=== PATIENT | male | born 1995 | race Caucasian/White ===

== ENCOUNTER → 2017-03-16 | Outpatient (REF) ==
[~2017-03-16] MED LIST: FLEXERIL 1010 MG/TAB PO; NORCO 325 MG-51 TAB PO
== END ==
LOC: WSOH 11:05
DX: Z02.1 Encounter for pre-employment examination (principal)

== ENCOUNTER 2017-05-14 20:28 | Emergency (ER) | payer SELFPAY ==
[~2017-05-14] VITALS: Ht 177.8 cm; Wt 70.5 kg
[~2017-05-14 20:28] MED LIST changes: -NORCO 325 MG-51 TAB PO
[2017-05-14 20:29] VITALS: TEMP 98.4
[2017-05-14] MEDS ORDERED: NORCO 325 MG-51 TAB PO (21:22)
[2017-05-14 21:36] VITALS: BP 122/84; PULSE 99
== END 2017-05-14 21:38 | disposition home or self-care (01) ==
LOC: COL.ER 20:28
DX: M25.512 Pain in left shoulder (principal)

== ENCOUNTER 2017-07-27 21:19 | Emergency (ER) | payer OTHER ==
[~2017-07-27] VITALS: Ht 177.8 cm; Wt 68.2 kg
[~2017-07-27 21:19] MED LIST changes: +NORCO 325 MG-51 TAB PO
[2017-07-27 21:24] VITALS: TEMP 97.7
[2017-07-27 21:35] LABS: BASO # 0.1 (0.0-0.2); BASO % 0.5 % (0.0-2.0); EOS # 0.1 (0.0-0.7); EOS % 0.5 % (0-4.0); GRAN # 7.1 (1.4-6.5); GRAN % 73.8 % (42.2-75.2); HEMATOCRIT 46.9 % (42.0-52.0); HEMOGLOBIN 16.3 g/dl (13.5-18.0); LYMPH # 1.7 (1.2-3.4); LYMPH % 17.8 % (20.0-51.0); MEAN CELL VOLUME 91 fl (80.0-100.0); MEAN CORPUSCULAR HEMOGLOBIN 32 pg (27.0-31.0); MEAN CORPUSCULAR HGB CONC 35 g/dl (33.0-37.0); MEAN PLATELET VOLUME 9.6 fl (7.4-10.4); MONO # 0.7 (0.1-0.6); MONO % 7.3 % (1.7-9.3); PLATELET COUNT 251 K/mm3 (130-400); RED BLOOD COUNT 5.17 M/mm3 (4.20-5.60); REDCELL DISTRIBUTION WIDTH-CV 12.4 % (11.5-14.5); WHITE BLOOD COUNT 9.6 K/mm3 (4.8-10.8)
[2017-07-27 21:41] LABS: POTASSIUM 3.6 mmol/L (3.4-5.0)
[2017-07-27 21:42] LABS: ADJUSTED CALCIUM 9.4 mg/dL (8.4-10.2); ALANINE AMINOTRANSFERASE 13 U/L (21-72); ALKALINE PHOSPHATASE 75 U/L (50-136); ANION GAP 13 mmol/L (7-16); BILIRUBIN,TOTAL 1.5 mg/dL (0.0-1.0); BLOOD UREA NITROGEN 13 mg/dL (9-20); CALCIUM 10.2 mg/dL (8.4-10.2); CARBON DIOXIDE 21 mmol/L (22-30); CHLORIDE 106 mmol/L (98-107); CREATININE, serum 1.01 mg/dL (0.66-1.25); GLUCOSE 84 mg/dL (74-106); SODIUM 140 mmol/L (137-145); TOTAL PROTEIN 8.6 gm/dL (6.4-8.2)
[2017-07-27 23:06] LABS: AMPHETAMINE URINE NEGATIVE; BARBITURATES URINE NEGATIVE; BENZODIAZEPINES URINE NEGATIVE; BUPRENORPHINE URINE NEGATIVE; METHADONE URINE NEGATIVE; OPIATES URINE NEGATIVE; OXYCODONE URINE NEGATIVE; PHENCYCLIDINE URINE NEGATIVE; PROPOXYPHENE URINE NEGATIVE; THC CANNABINOIDS URINE NEGATIVE
[2017-07-28 00:29] VITALS: BP 124/81; PULSE 94
== END 2017-07-28 00:31 | disposition home or self-care (01) ==
LOC: COL.ER 21:19
PROVIDERS: Emergency Medicine
DX: R55 Syncope and collapse (principal); R56.9 Unspecified convulsions
CPT/HCPCS: J2060; J2405; J7030

== ENCOUNTER 2017-10-22 13:03 | Emergency (ER) | payer OTHER ==
[~2017-10-22] VITALS: Ht 180.3 cm; Wt 70.5 kg
[~2017-10-22 13:03] MED LIST changes: +ATIVAN 1MG T1 MG/TAB PO
[2017-10-22 13:05] VITALS: BP 143/89; TEMP 98.1
[2017-10-22] MEDS ORDERED: CELEXA 20MG20 MG/TAB PO (13:07)
[2017-10-22] MEDS ORDERED: INDERAL 10MG10 MG PO (13:32)
[2017-10-22] MEDS ORDERED: NORCO 325 MG-51 TAB PO (14:18)
[2017-10-22] MEDS ORDERED: IBU600 MG PO (14:18)
[2017-10-22 14:24] VITALS: PULSE 84
[2017-10-24] MEDS ORDERED: MINIPRESS 1M1 MG/CAP PO (01:45)
== END 2017-10-22 14:25 | disposition home or self-care (01) ==
LOC: COL.ER 13:03
DX: M25.552 Pain in left hip (principal); M25.562 Pain in left knee; I10 Essential (primary) hypertension; F32.9 Major depressive disorder, single episode, unspecified; V03.90XA Pedestrian on foot injured in collision with car, pick-up truck or van, unspecified whether traffic or nontraffic accident, initial encounter; Y92.410 Unspecified street and highway as the place of occurrence of the external cause